=== PATIENT | male | born 1960 | race Caucasian/White ===

== ENCOUNTER 2018-07-14 06:16 | Inpatient (IN) ==
--- NOTE | 2018-07-14 07:17 | ED ---
HPI General Chief complaint: Eye Problems Stated complaint: L Eye Time Seen by Provider: 07/14/18 06:53 Source: patient and family Mode of arrival: ambulatory Limitations: no limitations History of Present Illness HPI Narrative: The patient is 58-year-old male with medical history significant for hypertension presenting with complaint of problems seen from the left lateral side of his left eye since yesterday morning. He has an elevated blood pressure on arrival of 189/90 states he has not taken his lisinopril yet because he has not eaten. He has not visits here in the ED on 05/20/2016 with complaint of high blood pressure. Patient claims that he is compliant with medications and diet. chief complaint: vision change Onset (ago): hour(s) (24) Onset description: sudden Duration: constant Location: left eye Eye Symptoms: blurry vision Place: home Mechanism: none Associated symptoms: headache Treatments Prior to Arrival: none Related Data Home Medications Medication Instructions Recorded Confirmed amlodipine 2.5 mg PO DAILY 07/14/18 07/14/18 dapagliflozin-metformin [Xigduo XR] 1 tab PO DAILY 07/14/18 07/14/18 ergocalciferol (vitamin D2) 50,000 unit PO QWEEK 07/14/18 07/14/18 linagliptin [Tradjenta] 5 mg PO DAILY 07/14/18 07/14/18 lisinopril 40 mg PO DAILY 07/14/18 07/14/18 omeprazole 10 mg PO DAILY 07/14/18 07/14/18 Allergies Allergy/AdvReac Type Severity Reaction Status Date / Time No Known Allergies Allergy Verified 07/14/18 06:20 Review of Systems ROS: all other systems reviewed are negative Eyes Reports blurry vision (On the left visual issa of the left eye) and Denies loss of peripheral vision [facility] [place] Medical History Medical History Corneal ulcer of left eye (Acute) Diabetes mellitus, type 2 (Acute) GERD (gastroesophageal reflux disease) (Acute) HTN (hypertension) (Acute) Surgical History Surgical History Hx of colonoscopy (Acute) Family History Family History Father Colon cancer Social History Social History Substance History: No History of Abuse Second Hand Smoke Exposure: Yes Smoking Status: Never smoker How Often Do You Have a Drink Containing Alcohol: 2 to 4 times a month Recent Travel in [place] within the Last 8 Weeks: No Recent Out of Country Travel within the Last 8 Weeks: No Immunization History Tetanus Immunization: >5 Years Hx Influenza Vaccine This Season: Yes Exam Narrative Exam Narrative: GENERAL: Alert and oriented in no distress SKIN: Focused skin assessment warm/dry. HEAD: Atraumatic. Normocephalic. EYES: Pupils equal and round. No scleral icterus. No injection or drainage. Extraocular muscles intact. Patient has left temporal hemianopsia but he does not have loss of vision is just blurry he still able to decipher how many fingers I am holding up. No AV nicking noted. Difficult to have a complete eye exam since he is pupils are almost pinpoint. No pain with extraocular muscle movement. ENT: No nasal bleeding or discharge. Mucous membranes pink and moist. NECK: Trachea midline. No JVD. CARDIOVASCULAR: Regular rate and rhythm. No murmur appreciated. RESPIRATORY: No accessory muscle use. Clear to auscultation. Breath sounds equal bilaterally. GASTROINTESTINAL: Abdomen soft, non-tender, nondistended. Hepatic and splenic margins not palpable. MUSCULOSKELETAL: No obvious deformities. No clubbing. No cyanosis. No edema. NEUROLOGICAL: Awake and alert. No obvious cranial nerve deficits. Motor grossly within normal limits. Normal speech. PSYCHIATRIC: Appropriate mood and affect; insight and judgment normal. Course Hospital Course: Patient was given clonidine p.o. due to high blood pressure of 189/90. Consultations Consultation #1: Neurology on-call recommends admission for acute stroke patient is out of the window for TPA since symptoms started yesterday at 8 AM. Time: 08:14 Initial Documented Vital Signs Temperature 97.4 F L 07/14/18 06:17 Pulse Rate 68 07/14/18 06:17 Respiratory Rate 18 07/14/18 06:17 Blood Pressure 189/90 H 07/14/18 06:17 Pulse Oximetry 98 07/14/18 06:17 Last Documented Vital Signs Temperature 98 F 07/14/18 17:33 Pulse Rate 50 L 07/14/18 17:52 Respiratory Rate 17 07/14/18 17:33 Blood Pressure 155/87 H 07/14/18 17:33 Pulse Oximetry 99 07/14/18 17:33 Critical Care Time Critical Care Time: Yes Total Critical Care Time: 45 Attestation: Aggregate critical care time was 45 minutes. Time to perform other separately billable procedures was not included in the critical care time. My time did not include minutes spent treating any other patients simultaneously or on activities that did not directly contribute to the patient's treatment. The services I provided to this patient were to treat and/or prevent clinically significant deterioration that could result in: Permanent disability and/or per I provided critical care services requiring my management, as noted below: Chart data review, documentation time, medication orders and management, vital sign assessments/reviewing monitor data, ordering and reviewing lab tests, ordering and interpreting/reviewing x-rays and diagnostic studies, care of the patient and discussion of the patient with the admitting physicians. Medical Decision Making MDM Narrative Medical decision making narrative: Patient with occipital stroke on the right side and edema. Not a TPA candidate due to the fact that symptoms started 24 hours ago. Hemodynamically stable admitted for further evaluation. Neurology has been consulted. Medical Screen Exam Complete: Yes Emergency Medical Condition: Yes Medical Records Medical records reviewed: Yes I reviewed the patient's medical records. Lab Data Lab results reviewed: Yes I reviewed the patient's lab results. Result diagrams: 07/14/18 07:25 07/14/18 07:25 Lab Results 07/14/18 07/14/18 07/14/18 Range/Units 07:25 07:25 07:25 WBC 3.6 L (4.0-11.0) th/mm3 RBC 4.63 (4.50-5.90) mil/mm3 Hgb 14.6 (13.0-17.0) gm/dL Hct 43.3 (39.0-51.0) % MCV 93.4 (80.0-100.0) fL MCH 31.6 (27.0-34.0) pg MCHC 33.8 (32.0-36.0) % RDW 12.5 (11.6-17.2) % Plt Count 144 L (150-450) th/mm3 MPV 7.5 (7.0-11.0) fL Neut % (Auto) 61.4 (16.0-70.0) % Lymph % (Auto) 22.3 (9.0-44.0) % Hall % (Auto) 14.3 H (0.0-8.0) % Eos % (Auto) 1.6 (0.0-4.0) % Baso % (Auto) 0.4 (0.0-2.0) % Neut # (Auto) 2.2 (1.8-7.7) th/mm3 Lymph # (Auto) 0.8 L (1.0-4.8) th/mm3 Hall # (Auto) 0.5 (0.0-0.9) th/mm3 Eos # (Auto) 0.1 (0.0-0.4) th/mm3 Baso # (Auto) 0.0 (0.0-0.2) th/mm3 WBC Differential . Differential Comment Auto diff final PT 10.1 (9.8-11.6) sec INR 1.0 Ratio APTT 30.5 H (24.3-30.1) sec Sodium 140 (136-145) meq/L Potassium 4.2 (3.5-5.1) meq/L Chloride 106 (98-107) meq/L Carbon Dioxide 25.4 (21.0-32.0) meq/L Anion Gap 9 (5-15) meq/L BUN 19 H (7-18) mg/dL Creatinine 0.96 (0.60-1.30) mg/dL Estimated GFR 80 L (>89) mL/min POC Glucose (68-110) mg/dl Random Glucose 111 H (74-106) mg/dL Calcium 9.0 (8.5-10.1) mg/dL 07/14/18 Range/Units 17:44 WBC (4.0-11.0) th/mm3 RBC (4.50-5.90) mil/mm3 Hgb (13.0-17.0) gm/dL Hct (39.0-51.0) % MCV (80.0-100.0) fL MCH (27.0-34.0) pg MCHC (32.0-36.0) % RDW (11.6-17.2) % Plt Count (150-450) th/mm3 MPV (7.0-11.0) fL Neut % (Auto) (16.0-70.0) % Lymph % (Auto) (9.0-44.0) % Hall % (Auto) (0.0-8.0) % Eos % (Auto) (0.0-4.0) % Baso % (Auto) (0.0-2.0) % Neut # (Auto) (1.8-7.7) th/mm3 Lymph # (Auto) (1.0-4.8) th/mm3 Hall # (Auto) (0.0-0.9) th/mm3 Eos # (Auto) (0.0-0.4) th/mm3 Baso # (Auto) (0.0-0.2) th/mm3 WBC Differential Differential Comment PT (9.8-11.6) sec INR Ratio APTT (24.3-30.1) sec Sodium (136-145) meq/L Potassium (3.5-5.1) meq/L Chloride (98-107) meq/L Carbon Dioxide (21.0-32.0) meq/L Anion Gap (5-15) meq/L BUN (7-18) mg/dL Creatinine (0.60-1.30) mg/dL Estimated GFR (>89) mL/min POC Glucose 100 (68-110) mg/dl Random Glucose (74-106) mg/dL Calcium (8.5-10.1) mg/dL Imaging Data Radiologist's impression: Head CT 07/14/18 07:09 CONCLUSION: 1. Focal decreased attenuation involving the right medial occipital lobe consistent with probable acute infarct or possible edema related to underlying lesion. MRI of the brain with and without contrast be helpful for further characterization of this finding. 2. Scattered periventricular and subcortical white matter small vessel ischemic changes are noted bilaterally. 3. Scattered old tiny lacunar infarcts are noted within the bilateral alcantar radiata and the right cerebellar hemisphere. 4. No acute hemorrhage, midline shift or extra-axial bleed is noted. . Head MRI 07/14/18 08:37 CONCLUSION: 1. 3 cm stroke in the right occipital lobe. No evidence of underlying mass or vasogenic edema. 2. Multiple old lacunar infarcts scattered throughout the deep white matter tracts in the left side of the deacon. 3. Right-sided maxillary sinus disease Head MRA 07/14/18 08:37 CONCLUSION: 1. Hypoplastic right A1. No evidence of aneurysm or stenosis. 2. Edema in the right occipital lobe consistent with ongoing stroke. Neck MRA 07/14/18 08:37 CONCLUSION: 1. Negative MRA Carotids. Percent stenosis is calculated using the diameter of the stenotic region over the diameter of the normal distal internal carotid artery Discharge Plan Discharge Disposition Patient Disposition: 30 Still Patient Discharge Condition Condition: Fair Discharge Details Diagnosis: Occipital stroke Physicians Team ED Provider: Stoney Leung Primary Care Provider: Chuck Asif III Attending Provider: Obey Aldana Other Providers: Laquita Cristina Discharge Interventions Interventions: ED Discharge Assessment Last Done: 07/14/18 17:14 Vital Signs Last Done: 07/14/18 14:00 Status ED Status: Left Department Discharge Information Discharge Date/Time: 07/14/18 17:00
[2018-07-14 07:39] LABS: Baso % (Auto) 0.4 % (0.0-2.0); Eos # (Auto) 0.1 th/mm3 (0.0-0.4); Eos % (Auto) 1.6 % (0.0-4.0); Hematocrit 43.3 % (39.0-51.0); Hemoglobin 14.6 gm/dL (13.0-17.0); Lymph # (Auto) 0.8 th/mm3 (1.0-4.8); Lymph % (Auto) 22.3 % (9.0-44.0); Mean Corpuscular HGB Conc 33.8 % (32.0-36.0); Mean Corpuscular Hemoglobin 31.6 pg (27.0-34.0); Mean Corpuscular Volume 93.4 fL (80.0-100.0); Mean Platelet Volume 7.5 fL (7.0-11.0); Mono # (Auto) 0.5 th/mm3 (0.0-0.9); Mono % (Auto) 14.3 % (0.0-8.0); Neut # (Auto) 2.2 th/mm3 (1.8-7.7); Neut % (Auto) 61.4 % (16.0-70.0); Platelet Count 144 th/mm3 (150-450); Red Blood Count 4.63 mil/mm3 (4.50-5.90); Red Cell Distribution Width 12.5 % (11.6-17.2); White Blood Count 3.6 th/mm3 (4.0-11.0)
[2018-07-14 07:48] LABS: Activated Partial Thrombo Time 30.5 sec (24.3-30.1); Prothrombin Time 10.1 sec (9.8-11.6)
[2018-07-14 07:58] LABS: Carbon Dioxide 25.4 meq/L (21.0-32.0); Potassium 4.2 meq/L (3.5-5.1)
[2018-07-14] MEDS ORDERED: Gadobutrol PF 10 MMOL/10 ML Vial (for RAD) IV.SIG ONE (11:19)
[2018-07-14] MEDS ORDERED: Dextrose 50% in Water 50 ML Vial IV.PUSH PRN (15:09)
--- NOTE | 2018-07-14 16:52 | ECHRPT ---
Indication: CVA/TIA CONCLUSIONS Normal left ventricular size. Mild concentric left ventricular hypertrophy. The left ventricular systolic function is normal with an estimated fraction in the range of 60-65%. Trace mitral valve regurgitation. There is trace tricuspid valve regurgitation. The estimated pulmonary arterial pressure is 37 mmHg. BP: / HR: Rhythm: Sinus MEASUREMENTS (Male / Female) Normal Values Technical Quality:Fair 2D ECHO LV Diastolic Diameter PLAX 4.9 cm 4.2 - 5.9 / 3.9 - 5.3 cm LV Systolic Diameter PLAX 3.4 cm IVS Diastolic Thickness 1.3 cm 0.6 - 1.0 / 0.6 - 0.9 cm LVPW Diastolic Thickness 1.3 cm 0.6 - 1.0 / 0.6 - 0.9 cm LV Relative Wall Thickness 0.5 RV Internal Dim ED PLAX 3.0 cm LVOT Diameter 2.2 cm Aortic Root Diameter 2.8 cm LA Systolic Diameter LX 3.9 cm 3.0 - 4.0 / 2.7 - 3.8 cm DOPPLER AV Peak Velocity 114.0 cm/s AV Peak Gradient 5.2 mmHg AV Mean Gradient 3.0 mmHg AV Velocity Time Integral 23.4 cm LVOT Peak Velocity 104.0 cm/s LVOT Peak Gradient 4.3 mmHg LVOT Velocity Time Integral 18.6 cm AV Area Cont Eq vti 3.0 cm AV Area Cont Eq pk 3.5 cm Mitral E Point Velocity 64.2 cm/s Mitral A Point Velocity 93.3 cm/s Mitral E to A Ratio 0.7 LV E' Lateral Velocity 9.4 cm/s Mitral E to LV E' Lateral Ratio 6.9 LV E' Septal Velocity 6.3 cm/s Mitral E to LV E' Septal Ratio 10.1 TR Peak Velocity 262.0 cm/s TR Peak Gradient 27.0 mmHg PV Peak Velocity 60.9 cm/s PV Peak Gradient 1.5 mmHg FINDINGS LEFT VENTRICLE Normal left ventricular size. Mild concentric left ventricular hypertrophy. The left ventricular systolic function is normal with an estimated ejection fraction in the range of 60-65%. RIGHT VENTRICLE Normal right ventricular size and systolic function. LEFT ATRIUM The left atrial size is normal. RIGHT ATRIUM The right atrial size is normal. ATRIAL SEPTUM No atrial level shunt is demonstrated by color flow Doppler interrogation. AORTA The aortic root and proximal ascending aorta are not well visualized. MITRAL VALVE Trace mitral valve regurgitation. AORTIC VALVE Trileaflet aortic valve. No aortic valve stenosis or regurgitation. TRICUSPID VALVE There is trace tricuspid valve regurgitation. The estimated pulmonary arterial pressure is 37 mmHg. PULMONARY VALVE No pulmonary valve regurgitation or stenosis. VESSELS The inferior vena cava is normal in size. PERICARDIUM No pericardial effusion. Nell Groves MD, FACC (Electronically Signed) Final Date:14 July 2018 16:51
[2018-07-14] MEDS: Insulin NovoLOG Aspart Correctional Sugar Inj SQ SCH ×2 (17:47→22:01)
[2018-07-15] MEDS: Insulin NovoLOG Aspart Correctional Sugar Inj SQ SCH ×2 (07:52→12:13)
[2018-07-15 08:27] LABS: Chol/HDL Ratio 4.29 Ratio; HDL Cholesterol 35.6 mg/dL (40.0-60.0)
[2018-07-15] MEDS ORDERED: Lisinopril 20 MG Tablet PO SCH (09:00)
[2018-07-15] MEDS ORDERED: amLODIPine 5 MG Tablet PO SCH (09:00)
[2018-07-15 13:37] LABS: Hemoglobin A1c 7.7 % (4.3-6.0)
--- NOTE | 2018-07-16 13:27 | ECG ---
Date Performed: 07/14/2018 Time Performed: 16:57:52 PTAGE: 58 years EKG: SINUS BRADYCARDIA MARKED LEFT AXIS DEVIATION INTRAVENTRICULAR CONDUCTION DELAY ABNORMAL ECG Since the PREVIOUS TRACING , no significant change noted DOCTOR: Deacon Ramos Interpretating Date/Time 07/16/2018 13:26:08
== END 2018-07-15 14:38 | disposition home or self-care (01) ==
LOC: NEPC 06:16 → NEDA 14:56 → HCIS 17:00
PROVIDERS: ADMIT Hospitalist; ATTEND Hospitalist